=== PATIENT | female | born 1965 | race Caucasian/White ===

== ENCOUNTER 2024-02-17 18:48 | Emergency (ER) | payer OTHER ==
[~2024-02-17] VITALS: Ht 160 cm; Wt 56.2 kg
[2024-02-17] MEDS ORDERED: KETOROLAC TROMETHAMINE 30 MG/ML VIAL ONE (19:08)
[2024-02-17] MEDS: KETOROLAC TROMETHAMINE 60 MG/2 ML VIAL IM STA (19:09)
[2024-02-17] MEDS ORDERED: ULTRAM 50MG50 MG PO (19:57)
[2024-02-17 20:12] VITALS: BP 143/86; PULSE 86; RESP 16; O2SAT 98
== END 2024-02-17 20:10 | disposition home or self-care (01) ==
LOC: ER 20:04
DX: M25.511 Pain in right shoulder (principal); I10 Essential (primary) hypertension; E78.5 Hyperlipidemia, unspecified; F41.9 Anxiety disorder, unspecified
CPT/HCPCS: 73030; 99283; J1885